=== PATIENT | female | born 1955 | race Caucasian/White ===

== ENCOUNTER 2020-02-29 23:08 | Emergency (ER) | payer OTHER ==
[~2020-02-29] VITALS: Ht 162.6 cm; Wt 75.3 kg
[2020-02-29 23:20] VITALS: Ht 162.6 cm; Wt 75.3 kg
[2020-03-01 04:39] LABS: BILIRUBIN TOTAL 0.48 mg/dL (0.20-1.00); CALCIUM 8.7 mg/dL (8.5-10.1); CARBON DIOXIDE 31.9 mmol/L (21-32); CREATININE SERUM 3.9 mg/dL (0.6-1.0); POTASSIUM SERUM 4.5 mmol/L (3.5-5.1)
[2020-03-01 04:40] LABS: ALBUMIN 2.3 g/dL (3.4-5.0)
[2020-03-01 05:03] LABS: BASOPHIL % 0.3 % (0.2-1.3); PLATELET COUNT 321 x10^3mcL (179-408); RED CELL DISTRIBUTION WIDTH 13.8 % (12.3-17.7)
[2020-03-01 05:34] VITALS: BP 146/72
== END 2020-03-01 05:30 | disposition short-term general hospital (02) ==
LOC: ED 23:08
PROVIDERS: Student in an Organized Health Care Education/Training Program
DX: D89.40 Mast cell activation, unspecified (principal); I10 Essential (primary) hypertension; E11.9 Type 2 diabetes mellitus without complications; Z95.1 Presence of aortocoronary bypass graft
CPT/HCPCS: J2997; Q9967